=== PATIENT | female | born 1985 | race Caucasian/White ===

== ENCOUNTER 2019-07-27 21:01 | Emergency (ER) | payer MEDICAID ==
[~2019-07-27] VITALS: Ht 152.4 cm; Wt 108.9 kg
--- NOTE | 2019-07-27 21:05 | NUR ---
Patient to ER bed 01 to gown for evaluation. Side rails up. Report given to Darlin BLAKE.
[2019-07-27 21:12] VITALS: BP_SYST 147
--- NOTE | 2019-07-27 21:32 | NUR ---
Dr. Constantino bedside for Pt eval
--- NOTE | 2019-07-27 21:36 | NUR ---
Pt came to the ED for pressure like chest pain. Reports she has had a cough since Tuesday. Denies n/v/d or fever. Reports she has chronic bronchitis but she has "never felt like she cannot breathe." No other complaints/injuries noted. Will cont. to monitor.
[2019-07-27 21:40] VITALS: BP_SYST 147
--- NOTE | 2019-07-27 21:40 | NUR ---
Dr. Cosntantino at bedside reviewing results with pt.
--- NOTE | 2019-07-27 21:40 | NUR ---
Patient given written and verbal discharge instructions and verbalizes understanding. ER MD Dr. Constantino discussed with patient the results and treatment provided. Patient in stable condition. ID arm band removed. Rx of augmentin, tessalon, and albuterol given. Patient educated on pain management and to follow up with PMD. Pain Scale 0/10. Opportunity for questions provided and answered. Medication side effect fact sheet provided.
== END 2019-07-27 21:40 | disposition home or self-care (01) ==
LOC: SED 21:01
DX: J20.9 Acute bronchitis, unspecified (principal); F32.9 Major depressive disorder, single episode, unspecified; F41.9 Anxiety disorder, unspecified
CPT/HCPCS: 81025; 93005; 99283

== ENCOUNTER 2021-08-07 08:12 | Emergency (ER) | payer OTHER, MEDICAID ==
[~2021-08-07] VITALS: Ht 152.4 cm; Wt 112.5 kg
[2021-08-07 08:15] VITALS: BP_SYST 130
--- NOTE | 2021-08-07 08:15 | NUR ---
Placed in room 6 . Placed on cardiac/vascular sonographer, blood pressure machine and pulse oximeter. To gown for exam. Side rails up.
--- NOTE | 2021-08-07 08:17 | NUR ---
PT CAME IN FROM HOME C/O WAKING UP AROUND 0700 WITH DIZZINESS, WORSENS WHEN MOVING HEAD. REPORTS ALSO FEELING NAUSEOUS, ANXIOUS WITH SOME VISUAL DISTURBANCES. PT IS AAOX4, ABLE TO AMBULATE WITH STEADY GAIT, V/S STABLE
--- NOTE | 2021-08-07 08:20 | NUR ---
ER DR CADENA AT THE BEDSIDE EXAMINING PT
--- NOTE | 2021-08-07 08:55 | NUR ---
LAB AT THE BEDSIDE FOR BLOOD DRAW
--- NOTE | 2021-08-07 09:02 | NUR ---
Patient transported to radiology via AMBULATION, accompanied by STAFF.
[2021-08-07 09:07] LABS: BASOPHILS # (AUTO) 0.1 K/uL (0.0-0.2); BASOPHILS % (AUTO) 0.6 % (0.0-2.0); EOSINOPHILS # (AUTO) 0.4 K/uL (0.0-0.4); EOSINOPHILS % (AUTO) 4.6 % (0.0-4.0); HEMATOCRIT 34.8 % (36-48); HEMOGLOBIN 11.6 g/dL (12.0-16.0); LYMPHOCYTES # (AUTO) 2.8 K/uL (1.0-5.5); MEAN CORPUSCULAR HEMOGLOBIN 27 pg (27-31); MEAN CORPUSCULAR HGB CONC 34 % (32-36); MEAN CORPUSCULAR VOLUME 82 fL (79.0-98.0); MONOCYTES # (AUTO) 0.6 K/uL (0.0-1.0); MONOCYTES % (AUTO) 5.8 % (1.7-9.3); NEUTROPHILS # (AUTO) 5.8 K/uL (1.8-7.7); PLATELET COUNT (AUTO) 366 K/uL (130-430); RED BLOOD CELL COUNT(AUTO) 4.25 MIL/uL (4.2-6.2); WHITE BLOOD COUNT (AUTO) 9.6 K/uL (4.8-10.8)
[2021-08-07] MEDS ORDERED: MECL-225 PO (09:22)
[2021-08-07 09:23] LABS: CREATININE 0.79 mg/dL (0.55-1.30); POTASSIUM 4.2 mmol/L (3.5-5.1)
[2021-08-07 09:26] LABS: ALBUMIN 3.3 g/dL (3.4-4.8); TOTAL BILIRUBIN 0.3 mg/dL (0.0-1.0)
[2021-08-07 10:06] VITALS: BP_SYST 121
--- NOTE | 2021-08-07 10:07 | NUR ---
Patient given written and verbal discharge instructions and verbalizes understanding. ER MD discussed with patient the results and treatment provided. Patient in stable condition. ID arm band removed. Rx of MECLIZINE given. Patient educated on pain management and to follow up with PMD. Pain Scale 0/10. Opportunity for questions provided and answered. Medication side effect fact sheet provided.
== END 2021-08-07 10:07 | disposition home or self-care (01) ==
LOC: SED 08:12
DX: R42 Dizziness and giddiness (principal); F41.9 Anxiety disorder, unspecified; F32.9 Major depressive disorder, single episode, unspecified; Z79.899 Other long term (current) drug therapy
CPT/HCPCS: 36415; 71045; 80053; 81025; 83880; 84484; 85025; 93005; 99285